=== PATIENT | male | born 2000 | race Caucasian/White ===

== ENCOUNTER 2019-10-20 10:05 | Emergency (ER) | payer OTHER ==
[~2019-10-20] VITALS: Ht 182.9 cm; Wt 77.3 kg
[~2019-10-20 10:05] MED LIST: NO HOME MEDICATIONS
[2019-10-20 10:13] VITALS: BP 121/68; PULSE 54; TEMP 98
[2019-10-20] MEDS ORDERED: IBU800 M1 PO (10:53)
[2019-10-20] MEDS ORDERED: FLEXERIL 1010 MG/TAB PO (10:53)
== END 2019-10-20 11:47 | disposition home or self-care (01) ==
LOC: COL.ER 10:05
DX: M62.838 Other muscle spasm (principal); M54.2 Cervicalgia
CPT/HCPCS: J2360